=== PATIENT | male | born 1990 | race American Indian/Alaskan Native ===

== ENCOUNTER 2020-07-06 06:50 | Emergency (ER) | payer SELFPAY ==
[2020-07-06 06:59] VITALS: BP 145/104
[2020-07-06] MEDS ORDERED: ONDANSETRON 4 MG ODT TAB PO ONE (09:45)
[2020-07-06] MEDS ORDERED: ACETAMINOPHEN W/CODEINE 300-30 MG TAB PO ONE (09:45)
[2020-07-06 10:07] LABS: Basophils % (Auto) 0.2 % (0.0-1.8); Eosinophils # (Auto) 0.1 K/mm3 (0.0-0.4); Eosinophils % (Auto) 0.4 % (0.0-4.3); Hematocrit 33.5 % (35.5-45.6); Hemoglobin 12.1 gm/dl (11.8-15.2); Lymphocytes # (Auto) 1.9 K/mm3 (1.2-5.4); Lymphocytes % (Auto) 11.8 % (13.4-35.0); Mean Corpuscular HGB Conc 36 % (32-34); Mean Corpuscular Volume 93 fl (84-94); Monocytes # (Auto) 1.6 K/mm3 (0.0-0.8); Monocytes % (Auto) 10.3 % (0.0-7.3); Platelet Count 302 K/mm3 (140-440); Red Blood Count 3.61 M/mm3 (3.65-5.03)
--- NOTE | 2020-07-06 10:08 | XRay Report ---
CHEST PA AND LATERAL VIEWS INDICATION: chest tightness, SOB. COMPARISON: None. FINDINGS: Support devices: None. Heart: Within normal limits. Lungs/Pleura: No acute pulmonary or pleural findings. IMPRESSION: 1. No acute findings. Signer Name: Gerhard Piper MD Signed: 07/06/2020 10:04 AM Workstation Name: [id number]
--- NOTE | 2020-07-06 10:29 | Emergency Department Report ---
ED General Adult HPI - General Chief complaint: Dyspnea/Respdistress Stated complaint: RT ARM/CHEST PAIN/NAUSEA Time Seen by Provider: 07/06/20 09:25 Source: patient Mode of arrival: Ambulatory Limitations: No Limitations - History of Present Illness Initial comments: Patient is a 29-year-old male who presents emergency room with complaints of bilateral arm pain that began 2 days ago. Patient states that he went to a water park in [facility] 2 days ago and then began experiencing the symptoms later on that night. He states that he is also been having chest tightness, occasional shortness of breath, nausea, vomiting, and abd pain. He states that he has approximately 2 episodes of vomiting a day. He has associated chills. He states he did take his temperature and that it was normal and he does not have a fever. He denies any diarrhea, cough, urinary symptoms. He denies any sick contacts, recent travel, recent surgery, immobilization. He denies any family cardiac history or family history of DVT/PE. He states he has a past medical history of sickle cell trait. He has an allergy to hydrocodone. - Related Data Allergies Allergy/AdvReac Type Severity Reaction Status Date / Time hydrocodone Allergy Hives Verified 07/06/20 06:56 ED Review of Systems ROS: Stated complaint: RT ARM/CHEST PAIN/NAUSEA Other details as noted in HPI Comment: All other systems reviewed and negative ED Past Medical Hx - Past Medical History Additional medical history: sickle cell trait - Surgical History Additional Surgical History: right arm fasciotomy - Social History Smoking Status: Current Every Day Smoker Substance Use Type: Alcohol ED Physical Exam - General Limitations: No Limitations General appearance: alert, in no apparent distress - Head Head exam: Present: atraumatic, normocephalic - Eye Eye exam: Present: normal appearance - ENT ENT exam: Present: mucous membranes moist - Respiratory Respiratory exam: Present: normal lung sounds bilaterally. Absent: respiratory distress, wheezes, rales, rhonchi, stridor, chest wall tenderness, accessory muscle use, decreased breath sounds, prolonged expiratory - Cardiovascular Cardiovascular Exam: Present: regular rate, normal rhythm, normal heart sounds. Absent: systolic murmur, diastolic murmur, rubs, gallop - GI/Abdominal GI/Abdominal exam: Present: soft, tenderness (mild LLQ), normal bowel sounds. Absent: distended, guarding, rebound, rigid - Extremities Exam Extremities exam: Present: other (no bony ttp of the BUE, no edema of the BUE, no skin changes, no erythema, no increased warmth, FROM of the BUE, neurovascularly intact) - Neurological Exam Neurological exam: Present: alert, oriented X3 - Psychiatric Psychiatric exam: Present: normal affect, normal mood - Skin Skin exam: Present: warm, dry, intact ED Course Vital Signs 07/06/20 07/06/20 07/06/20 06:56 10:00 11:00 Temperature 98.5 F Pulse Rate 74 Respiratory 18 16 16 Rate Blood Pressure 145/104 O2 Sat by Pulse 97 Oximetry ED Medical Decision Making - Lab Data Result diagrams: 07/06/20 09:49 07/06/20 09:49 Lab Results 07/06/20 07/06/20 Range/Units 09:49 09:49 WBC 15.6 H (4.5-11.0) K/mm3 RBC 3.61 L (3.65-5.03) M/mm3 Hgb 12.1 (11.8-15.2) gm/dl Hct 33.5 L (35.5-45.6) % MCV 93 (84-94) fl MCH 34 H (28-32) pg MCHC 36 H (32-34) % RDW 15.0 (13.2-15.2) % Plt Count 302 (140-440) K/mm3 Lymph % (Auto) 11.8 L (13.4-35.0) % Crosby % (Auto) 10.3 H (0.0-7.3) % Eos % (Auto) 0.4 (0.0-4.3) % Baso % (Auto) 0.2 (0.0-1.8) % Lymph # (Auto) 1.9 (1.2-5.4) K/mm3 Crosby # (Auto) 1.6 H (0.0-0.8) K/mm3 Eos # (Auto) 0.1 (0.0-0.4) K/mm3 Baso # (Auto) 0.0 (0.0-0.1) K/mm3 Seg Neutrophils % 77.3 H (40.0-70.0) % Seg Neutrophils # 12.1 H (1.8-7.7) K/mm3 Sodium 141 (137-145) mmol/L Potassium 4.0 (3.6-5.0) mmol/L Chloride 102.5 (98-107) mmol/L Carbon Dioxide 17 L (22-30) mmol/L Anion Gap 26 mmol/L BUN 14 (9-20) mg/dL Creatinine 0.8 (0.8-1.3) mg/dL Estimated GFR > 60 ml/min BUN/Creatinine Ratio 18 % Glucose 95 (75-100) mg/dL Calcium 9.9 (8.4-10.2) mg/dL Magnesium 1.90 (1.7-2.3) mg/dL Total Bilirubin 1.00 (0.1-1.2) mg/dL AST 28 (5-40) units/L ALT 21 (7-56) units/L Alkaline Phosphatase 98 (35-129) units/L Total Creatine Kinase 237 H (55-170) units/L Troponin T < 0.010 (0.00-0.029) ng/mL Total Protein 8.1 (6.3-8.2) g/dL Albumin 4.7 (3.9-5) g/dL Albumin/Globulin Ratio 1.4 % Lipase 15 (13-60) units/L - Radiology Data Radiology results: report reviewed CHEST PA AND LATERAL VIEWS INDICATION: chest tightness, SOB. COMPARISON: None. FINDINGS: Support devices: None. Heart: Within normal limits. Lungs/Pleura: No acute pulmonary or pleural findings. IMPRESSION: 1. No acute findings. Signer Name: Gerhard Piper MD Signed: 07/06/2020 10:04 AM Workstation Name: [id number] Transcribed By: NATALY Dictated By: Gerhard Piper MD Electronically Authenticated By: Gerhard Piper MD Signed Date/Time: 07/06/20 1004 DD/ 1003 TD/TT: - Medical Decision Making Patient is a 29-year-old male who presents emergency room with complaints of b ilateral arm pain that began 2 days ago. Patient states that he went to a water park in [facility] 2 days ago and then began experiencing the symptoms later on that night. He states that he is also been having chest tightness, occasional shortness of breath, nausea, vomiting, and abd pain. He states that he has approximately 2 episodes of vomiting a day. He has associated chills. He states he did take his temperature and that it was normal and he does not have a fever. He denies any diarrhea, cough, urinary symptoms. He denies any sick contacts, recent travel, recent surgery, immobilization. He denies any family cardiac history or family history of DVT/PE. He states he has a past medical history of sickle cell trait. He has an allergy to hydrocodone. Vitals with mildly elevated diastolic blood pressure, otherwise stable. On exam patient has mild left lower quadrant tenderness palpation, no guarding, no rebound, no rigidity, normal bowel sounds, breath sounds are clear bilaterally, no wheezing, no rales, no rhonchi. Labs significant for elevated white blood cell count, otherwise stable. CXR: 1. No acute findings. PERC criteria negative for PE. Patient given 1 L IV fluids, ODT Zofran, Tylenol 3. He was able to tolerate p.o. intake without difficulty. He still continued to have some pain. Patient to have Zofran and morphine. Patient eloped from the emergency department prior to receiving medications and prior to receiving all of his appropriate testing and without a complete full medical evaluation. He is alert and oriented x4 and has no distracting injury and has decision-making capacity. He was advised by nursing staff that he would need to sign out AGAINST MEDICAL ADVICE, patient did not sign AMA form. - Differential Diagnosis PNA, pericarditis, colitis, diverticulitis, gastroenteritis, viral syndrome Critical care attestation.: If time is entered above; I have spent that time in minutes in the direct care of this critically ill patient, excluding procedure time. ED Disposition Clinical Impression: Chest tightness, SOB (shortness of breath) Nausea and vomiting Qualifiers: Vomiting type: unspecified Vomiting Intractability: non-intractable Qualified C ode(s): R11.2 - Nausea with vomiting, unspecified Abdominal pain Qualifiers: Abdominal location: left lower quadrant Qualified Code(s): R10.32 - Left lower quadrant pain Arm pain Qualifiers: Laterality: bilateral Qualified Code(s): M79.601 - Pain in right arm; M79.602 - Pain in left arm Disposition: LEFT AGAINST MED ADVICE Is pt being admited?: No Does the pt Need Aspirin: No Condition: Undetermined Referrals: PRIMARY CARE, [Primary Care Provider] - 3-5 Days
[2020-07-06] MEDS ORDERED: SODIUM CHLORIDE 0.9% 1000 ML 1,000 ML IV ONE (10:51)
[2020-07-06 10:53] LABS: Alanine Aminotransferase 21 units/L (7-56); Albumin 4.7 g/dL (3.9-5); BUN/Creatinine Ratio 18; Blood Urea Nitrogen 14 mg/dL (9-20); Calcium 9.9 mg/dL (8.4-10.2); Hemolysis Index 10
[2020-07-06] MEDS ORDERED: ONDANSETRON 4 MG/2 ML INJ IV ONE (12:12)
[2020-07-06] MEDS ORDERED: MORPHINE 4 MG/1 ML INJ IV ONE (12:12)
== END 2020-07-06 13:16 | disposition left against medical advice (07) ==
LOC: EDSEX → ED 06:50
DX: R07.89 Other chest pain (principal); M79.601 Pain in right arm; M79.602 Pain in left arm; R11.2 Nausea with vomiting, unspecified; R10.9 Unspecified abdominal pain; R06.02 Shortness of breath; Z88.8 Allergy status to other drugs, medicaments and biological substances; Z98.890 Other specified postprocedural states
CPT/HCPCS: 36415; 71046; 80053; 82550; 83690; 83735; 84484; 85025; 96360; Q0162

== ENCOUNTER 2020-07-07 11:00 | Emergency (ER) | payer SELFPAY ==
[2020-07-07 11:34] VITALS: BP 126/81
--- NOTE | 2020-07-07 12:21 | XRay Report ---
CHEST 2 VIEWS INDICATION: Chest Pain. COMPARISON: 07/06/2020 FINDINGS: Support devices: None. Heart: Within normal limits. Lungs/pleura: No acute air space or interstitial disease. No pneumothorax. Additional findings: None. IMPRESSION: No acute findings. Signer Name: Alf Chambers Jr, MD Signed: 07/07/2020 12:17 PM Workstation Name: [id number]
--- NOTE | 2020-07-07 13:32 | Emergency Department Report ---
ED Chest Pain HPI - General Chief Complaint: Chest Pain Stated Complaint: TROUBLE BREATHING/CHEST/RIB PAIN Time Seen by Provider: 07/07/20 13:18 Source: patient Mode of arrival: Ambulatory Limitations: No Limitations - History of Present Illness Initial Comments: 29-year-old -[place] male comes in complaining of chest pain nausea vomiting hot sweats and dizziness x2 days. Patient states that it started on Friday he has been taking Advil last dose was 3 AM but does not help. Patient denies any injury no lifting. He states that the pain is worse with deep breath and light when he exhales. He does admit to a slight cough hot sweats he does smoke cigarettes does not smoke weed occasionally drinks alcohol. He denies any COVID-19 contact. He does have a past medical history of sickle cell trait but he states that pain is worse than that. He reports has not been able to eat or drink much. This taking any medications is allergic to Lortab. MD Complaint: chest pain Onset/Timin -: days(s) Pain Location: substernal, left chest, right chest Pain Radiation: RUE Severity: severe Severity scale (0 -10): 10 Quality: sharp Consistency: constant Improves With: nothing Worsens With: inspiration, palpation, movement re: dyspnea. denies: nausea, vomting, diaphoresis Other Symptoms: cough Treatments Prior to Arrival: other (Advil 3 AM) - Related Data On Oral Contraceptives: No Previous Rx's Medication Instructions Recorded Last Taken Type Ciprofloxacin HCl [Ciprofloxacin 500 mg PO Q12HR 10 Days #20 tab 07/07/20 Unknown Rx TAB] Metoclopramide [Reglan] 10 mg PO TID #15 tab 07/07/20 Unknown Rx metroNIDAZOLE [Flagyl] 500 mg PO Q12HR 10 Days #20 tab 07/07/20 Unknown Rx traMADoL [Ultram 50 MG tab] 50 mg PO Q6HR PRN #12 tablet 07/07/20 Unknown Rx Allergies Allergy/AdvReac Type Severity Reaction Status Date / Time hydrocodone Allergy Hives Verified 07/06/20 06:56 Heart Score - HEART Score History: Slightly suspicious EKG: Normal Age: < 45 Risk factors: 1-2 risk factors Troponin: < normal limit HEART Score: 1 ED Review of Systems ROS: Stated complaint: TROUBLE BREATHING/CHEST/RIB PAIN Other details as noted in HPI Comment: All other systems reviewed and negative ED Past Medical Hx - Past Medical History Previous Medical History?: No Additional medical history: sickle cell trait - Surgical History Past Surgical History?: Yes Additional Surgical History: right arm fasciotomy - Social History Smoking Status: Current Every Day Smoker Substance Use Type: Alcohol - Medications Home Medications: Home Medications Medication Instructions Recorded Confirmed Last Taken Type Ciprofloxacin HCl [Ciprofloxacin 500 mg PO Q12HR 10 Days #20 tab 07/07/20 Unknown Rx TAB] Metoclopramide [Reglan] 10 mg PO TID #15 tab 07/07/20 Unknown Rx metroNIDAZOLE [Flagyl] 500 mg PO Q12HR 10 Days #20 tab 07/07/20 Unknown Rx traMADoL [Ultram 50 MG tab] 50 mg PO Q6HR PRN #12 tablet 07/07/20 Unknown Rx ED Physical Exam - General Limitations: No Limitations General appearance: alert, in no apparent distress - Head Head exam: Present: atraumatic, normocephalic - Eye Eye exam: Present: normal appearance - ENT ENT exam: Present: mucous membranes moist - Neck Neck exam: Present: normal inspection, full ROM - Respiratory Respiratory exam: Present: normal lung sounds bilaterally, chest wall tenderness. Absent: respiratory distress, wheezes, accessory muscle use - Cardiovascular Cardiovascular Exam: Present: irregular rhythm - GI/Abdominal GI/Abdominal exam: Present: soft, normal bowel sounds. Absent: distended - Extremities Exam Extremities exam: Present: normal inspection, full ROM - Back Exam Back exam: Present: normal inspection, full ROM - Neurological Exam Neurological exam: Present: alert, oriented X3 - Psychiatric Psychiatric exam: Present: normal affect, normal mood - Skin Skin exam: Present: warm, dry, intact, normal color. Absent: rash ED Course Vital Signs 07/07/20 07/07/20 11:33 16:05 Temperature 98.4 F Pulse Rate 93 H Respiratory 17 18 Rate Blood Pressure 126/81 [Left] O2 Sat by Pulse 98 Oximetry FROYLAN score - Froylan Score Age > 65: (0) No Aspirin use within the Past 7 Days: (0) No 3 or more CAD Risk Factors: (0) No 2 or more Angina events in past 24 hrs: (0) No Known CAD with more than 50% Stenosis: (0) No Elevated Cardiac Markers: (0) No ST Deviation Greater than 0.5mm: (0) No FROYLAN Score: 0 ED Medical Decision Making - Lab Data Result diagrams: 07/07/20 14:20 07/07/20 14:20 - Radiology Data Radiology results: report reviewed Ordering Physician: JOANNE MATUTE Date of Service: 07/07/20 Procedure(s): CT angio chest Accession Number(s): [id number] cc: JOANNE MATUTE CTA CHEST WITH CONTRAST INDICATION / CLINICAL INFORMATION: Elevated d-dimer with chest pain and sob. TECHNIQUE: Axial CT images were obtained through the chest after injection of 100 cc Omnipaque 300 IV contrast. 3 plane MIP and/or 3D reconstructions were produced. All CT scans at this location are performed using CT dose reduction for ALARA by means of automated exposure control. COMPARISON: Chest radiograph from the same date. FINDINGS: PULMONARY ARTERIES: No pulmonary emboli. THORACIC AORTA: No significant abnormality. HEART: No significant abnormality. CORONARY ARTERIES: No significant calcification. MEDIASTINUM / JONATHAN: No significant abnormality. PLEURA: No pleural effusion. No pneumothorax. LUNGS: No acute air space or interstitial disease. ADDITIONAL FINDINGS: None. UPPER ABDOMEN: Uncomplicated cholelithiasis. SKELETAL STRUCTURES: No significant osseous abnormality. IMPRESSION: 1. No CT evidence for pulmonary embolism. 2. No acute findings. 3. Uncomplicated cholelithiasis. Signer Name: Jossie Pearson MD Signed: 07/07/2020 4:41 PM Workstation Name: [id number] Transcribed By: Dictated By: JOSSIE PEARSON Electronically Authenticated By: JOSSIE PEARSON Signed Date/Time: 07/07/20 1641 DD/ 1635 TD/TT: - Medical Decision Making 29-year-old -[place] male comes in complaining of chest pain nausea vomiting hot sweats and dizziness x2 days. Patient states that it started on Friday he has been taking Advil last dose was 3 AM but does not help. Patient denies any injury no lifting. He states that the pain is worse with deep breath and light when he exhales. He does admit to a slight cough hot sweats he does smoke cigarettes does not smoke weed occasionally drinks alcohol. He denies any COVID-19 contact. He does have a past medical history of sickle cell trait but he states that pain is worse than that. He reports has not been able to eat or drink much. This taking any medications is allergic to Lortab. Chest x-ray is within normal limits, elevated d-dimer we will do a chest CTA. Chest CTA shows no concerns for pulmonary embolism but shows an uncomplicated cholecystitis. Patient was given normal saline morphine and Zofran. Critical care attestation.: If time is entered above; I have spent that time in minutes in the direct care of this critically ill patient, excluding procedure time. ED Disposition Clinical Impression: Nausea and vomiting, Cholecystitis, acute Disposition: DC-01 TO HOME OR SELFCARE Is pt being admited?: No Does the pt Need Aspirin: No Condition: Stable Instructions: Cholecystitis (ED) Additional Instructions: Complete antibiotics as prescribed. Take pain medication as needed. Take the Reglan as needed for the nausea and vomiting. Return back to the emergency room if symptoms get worse. Follow-up with a general surgeon for concern for possible gallbladder removal. Prescriptions: Ciprofloxacin HCl [Ciprofloxacin TAB] 500 mg PO Q12HR 10 Days #20 tab metroNIDAZOLE [Flagyl] 500 mg PO Q12HR 10 Days #20 tab Metoclopramide [Reglan] 10 mg PO TID #15 tab traMADoL [Ultram 50 MG tab] 50 mg PO Q6HR PRN #12 tablet PRN Reason: Pain Referrals: PRIMARY CARE, [Primary Care Provider] - 3-5 Days GRISELDA ESCOBEDO MD [Staff Physician] - 3-5 Days Forms: Work/School Release Form(ED)
[2020-07-07 14:38] LABS: Basophils # (Auto) 0.1 K/mm3 (0.0-0.1); Basophils % (Auto) 0.4 % (0.0-1.8); Eosinophils # (Auto) 0.1 K/mm3 (0.0-0.4); Eosinophils % (Auto) 0.5 % (0.0-4.3); Hematocrit 36.4 % (35.5-45.6); Hemoglobin 12.8 gm/dl (11.8-15.2); Lymphocytes # (Auto) 2.1 K/mm3 (1.2-5.4); Mean Corpuscular HGB Conc 35 % (32-34); Mean Corpuscular Volume 94 fl (84-94); Monocytes # (Auto) 1.7 K/mm3 (0.0-0.8); Platelet Count 249 K/mm3 (140-440); Red Blood Count 3.86 M/mm3 (3.65-5.03); Red Cell Distribution Width 14.8 % (13.2-15.2)
[2020-07-07 14:55] LABS: Alanine Aminotransferase 23 units/L (7-56); Albumin 4.8 g/dL (3.9-5); Blood Urea Nitrogen 16 mg/dL (9-20); Calcium 9.8 mg/dL (8.4-10.2); Hemolysis Index 24
[2020-07-07 14:56] LABS: BUN/Creatinine Ratio 23
[2020-07-07] MEDS ORDERED: MORPHINE 2 MG/1 ML INJ IV ONE (15:47)
--- NOTE | 2020-07-07 16:46 | Cat Scan Report ---
CTA CHEST WITH CONTRAST INDICATION / CLINICAL INFORMATION: Elevated d-dimer with chest pain and sob. TECHNIQUE: Axial CT images were obtained through the chest after injection of 100 cc Omnipaque 300 IV contrast. 3 plane MIP and/or 3D reconstructions were produced. All CT scans at this location are performed usin g CT dose reduction for ALARA by means of automated exposure control. COMPARISON: Chest radiograph from the same date. FINDINGS: PULMONARY ARTERIES: No pulmonary emboli. THORACIC AORTA: No significant abnormality. HEART: No significant abnormality. CORONARY ARTERIES: No significant calcification. MEDIASTINUM / JONATHAN: No significant abnormality. PLEURA: No pleural effusion. No pneumothorax. LUNGS: No acute air space or interstitial disease. ADDITIONAL FINDINGS: None. UPPER ABDOMEN: Uncomplicated cholelithiasis. SKELETAL STRUCTURES: No significant osseous abnormality. IMPRESSION: 1. No CT evidence for pulmonary embolism. 2. No acute findings. 3. Uncomplicated cholelithiasis. Signer Name: Mani Pearson MD Signed: 07/07/2020 4:41 PM Workstation Name: [id number]
[2020-07-07] MEDS ORDERED: SODIUM CHLORIDE 0.9% 1000 ML 1,000 ML IV ONE (17:18)
[2020-07-07] MEDS ORDERED: ONDANSETRON 4 MG/2 ML INJ IV ONE (17:19)
== END 2020-07-07 18:21 | disposition home or self-care (01) ==
LOC: ED 11:00
DX: K81.0 Acute cholecystitis (principal); F17.200 Nicotine dependence, unspecified, uncomplicated; Z98.890 Other specified postprocedural states; Z88.8 Allergy status to other drugs, medicaments and biological substances
CPT/HCPCS: 36415; 71046; 71275; 80053; 84484; 85025; 85379; 93005; 96361; 96374; 96375; 99284; J2270; J2405; J7030; Q9967